=== PATIENT | male | born 1955 | race Hispanic/Latino ===

== ENCOUNTER 2025-04-27 10:39 | Inpatient (IN) | payer OTHER ==
[2025-04-27] VITALS (8 sets, daily range): BP systolic 163–194; BP diastolic 74–93; PULSE 70–83; RESP 14–20; TEMP 97.2–98.1; O2SAT 92–97
[~2025-04-27] VITALS: Ht 162.6 cm; Wt 86.4 kg
[2025-04-27] MEDS: VASOTEC IV STA (11:25)
[2025-04-27] MEDS: NS 1000ML 1,000 ML IV ONE (11:25)
[2025-04-27 11:45] LABS: EOSINOPHIL % 0.3 % (0.0-5.0); HEMATOCRIT(ML) 45.5 % (37.0-53.0); HEMOGLOBIN 15.9 g/dL (13.9-16.3); LYMPHOCYTES % 7.8 % (24.0-44.0); MEAN CORP HGB 31.1 pg (26-34); MEAN CORP HGB CONCENTRATION 34.9 g/dL (33-36.5); MEAN CORP VOLUME 88.9 fL (78-100); MONOCYTES # 0.4 10^3/uL (0.3-0.8); MONOCYTES % 5.3 % (5.0-12.0); NEUTROPHIL # 6.7 10^3/uL (1.8-7.7); NEUTROPHILS % 86.5 % (41.0-85.0); PLATELET COUNT 212 10^3/uL (150-400); RED BLOOD CELL 5.12 10^6/uL (4.50-5.90); RED CELL DISTRIBUTION WIDTH 12.3 % (11.5-14.5); WHITE BLOOD CELL 7.7 10^3/uL (4.5-11.0)
[2025-04-27 11:47] LABS: +ADD MANUAL DIFF(NO CHRG) NO
[2025-04-27 12:17] LABS: ALANINE AMINOTRANSFERASE(ML) 26 U/L (12-78); ALBUMIN(ML) 4.1 g/dL (3.4-5.0); ALBUMIN/GLOBULIN RATIO 1.205; ALKALINE PHOSPHATASE 111 U/L (50-136); ANION GAP 12.6; ASPARTATE AMINO TRANSFERASE 16 U/L (0-35); CALCIUM 8.8 mg/dL (8.4-10.5); CARBON DIOXIDE 27.7 mmol/L (20.0-32); CREATININE SERUM 0.83 mg/dL (0.59-1.40); EST GFR, NON-AA 92.1 (>/=60); GLUCOSE 130 mg/dL (74-106); POTASSIUM 3.3 mmol/L (3.6-5.2); SODIUM 133 mmol/L (132-145)
[2025-04-27 13:05] LABS: LEUKOCYTE ESTERASE ,URINE NEGATIVE (NEGATIVE); NITRATE,URINE NEGATIVE (NEGATIVE)
[2025-04-27 13:17] LABS: APPEARANCE,URINE CLEAR; UA COLOR YELLOW
[2025-04-27] MEDS ORDERED: CETACAINE SPRAY TP ONE (15:19)
[2025-04-27] MEDS: CATAPRES-TTS 2 TD STA (15:23)
[2025-04-27] MEDS: PROTONIX IV IV SCH (15:23)
[2025-04-27] MEDS: NS 1000ML/KCL 20MEQ 1,000 ML IV SCH (15:24)
[2025-04-27] MEDS ORDERED: AMLO-170 PO (16:40)
[2025-04-27] MEDS ORDERED: LOVENOX SQ SCH (19:30)
[2025-04-27] MEDS: OFIRMEV 100 ML IV SCH (22:19)
[2025-04-27] MEDS: BENADRYL IV PRN (22:20)
[2025-04-28 03:55] VITALS: BP 169/88; PULSE 71; RESP 18; TEMP 97.3; O2SAT 96
[2025-04-28 05:23] LABS: BASOPHIL % 0.2 % (0.2-1.2); EOSINOPHIL % 0.7 % (0.0-5.0); HEMATOCRIT(ML) 41.2 % (37.0-53.0); HEMOGLOBIN 14.5 g/dL (13.9-16.3); LYMPHOCYTES # 1.25 10^3/uL1 (1.0-4.8); LYMPHOCYTES % 21.3 % (24.0-44.0); MEAN CORP HGB 31.5 pg (26-34); MEAN CORP HGB CONCENTRATION 35.2 g/dL (33-36.5); MEAN CORP VOLUME 89.4 fL (78-100); MONOCYTES # 0.6 10^3/uL (0.3-0.8); NEUTROPHILS % 67.6 % (41.0-85.0); PLATELET COUNT 199 10^3/uL (150-400); RED BLOOD CELL 4.61 10^6/uL (4.50-5.90); RED CELL DISTRIBUTION WIDTH 12.5 % (11.5-14.5); WHITE BLOOD CELL 5.9 10^3/uL (4.5-11.0)
[2025-04-28 05:29] LABS: +ADD MANUAL DIFF(NO CHRG) NO
[2025-04-28 05:41] LABS: ALBUMIN(ML) 3.4 g/dL (3.4-5.0); ALBUMIN/GLOBULIN RATIO 1.172; ANION GAP 14.7; BUN/CREATININE RATIO 15.38 (10.0-20.0); CALCIUM 8.3 mg/dL (8.4-10.5); CARBON DIOXIDE 24.7 mmol/L (20.0-32); CREATININE SERUM 0.78 mg/dL (0.59-1.40); POTASSIUM 3.4 mmol/L (3.6-5.2)
[2025-04-28 07:17] LABS: PROTHROMBIN PROTIME 10.2 SEC (9.3-11.6)
[2025-04-28 07:37] VITALS: BP 182/72; PULSE 77; RESP 18; TEMP 97.8; O2SAT 97
[2025-04-28] MEDS: LOVENOX SQ SCH (09:39)
[2025-04-28] MEDS: APRESOLINE IV SCH (09:39)
[2025-04-28] MEDS: KCL 20 MEQ/100 ML SOL 100 ML IV SCH (10:54)
[2025-04-28 12:19] VITALS: BP 182/85; PULSE 118; RESP 18; TEMP 98; O2SAT 98
[2025-04-28] MEDS: APRESOLINE IV STA (12:30)
[2025-04-28] MEDS: OFIRMEV 100 ML IV SCH (13:25)
[2025-04-28 16:04] VITALS: BP 156/74; PULSE 89; RESP 18; TEMP 97.8; O2SAT 99
[2025-04-28 19:29] VITALS: BP 192/86; PULSE 88; RESP 20; TEMP 98; O2SAT 95
[2025-04-28 21:04] VITALS: BP 161/71
[2025-04-29] VITALS: BP 175/76; PULSE 90; RESP 20; TEMP 98; O2SAT 94
[2025-04-29 04:19] VITALS: BP 180/85; PULSE 89; RESP 20; TEMP 98.1; O2SAT 96
[2025-04-29 07:42] VITALS: BP 180/83; PULSE 80; RESP 16; TEMP 97.8; O2SAT 98
[2025-04-29] MEDS: NORVASC PO SCH (09:25)
[2025-04-29 11:30] VITALS: BP 176/80; PULSE 76; RESP 16; TEMP 97.6; O2SAT 98
[2025-04-29 13:30] VITALS: BP 176/80; PULSE 76; RESP 16; TEMP 97.6; O2SAT 98
== END 2025-04-29 13:30 | disposition home or self-care (01) | DRG 390 ==
LOC: ER 10:39 → MS 13:49
PROVIDERS: ADMIT Internal Medicine; ATTEND Internal Medicine
PROC: 0D9670Z Drainage of Stomach with Drainage Device, Via Natural or Artificial Opening (ICD-10-PCS; principal; 2025-04-27)
DX: K56.609 Unspecified intestinal obstruction, unspecified as to partial versus complete obstruction (principal); I10 Essential (primary) hypertension; E87.6 Hypokalemia; N40.0 Benign prostatic hyperplasia without lower urinary tract symptoms; Z79.899 Other long term (current) drug therapy; Z83.3 Family history of diabetes mellitus; Z90.81 Acquired absence of spleen
CPT/HCPCS: 36415; 71045; 74019; 74177; 80053; 81001; 83605; 83735; 84145; 85025; 85610; 85730; 87086; 93005; 99285; J0131; J0360; J1200; J1650; J3480; J3490; J7030; Q9965

== ENCOUNTER → 2025-04-27 | Outpatient (CLI) | payer OTHER ==
[~2025-04-27] MED LIST: AMLO-170 PO
== END | disposition home or self-care (01) ==
LOC: RAD 09:55
PROVIDERS: ATTEND Nurse Practitioner Family
DX: R14.0 Abdominal distension (gaseous) (principal); R10.84 Generalized abdominal pain
CPT/HCPCS: 74019